=== PATIENT | male | born 1955 | race Caucasian/White ===

== ENCOUNTER 2016-11-09 13:33 | Emergency (ER) | payer OTHER ==
[~2016-11-09] VITALS: Ht 172.7 cm; Wt 117.0 kg
[2016-11-09] MEDS ORDERED: HYDR25TA PO (13:43)
[2016-11-09] MEDS ORDERED: PROZ10 PO (13:43)
[2016-11-09] MEDS ORDERED: LISI-660 PO (13:43)
[2016-11-09] MEDS ORDERED: ALBU8HFA4 IH (13:43)
[2016-11-09] MEDS ORDERED: IPRATROPIUM BROMIDE 0.5 MG/2.5 ML NEB SOLUTION NEB ONE (13:45)
[2016-11-09] MEDS ORDERED: ALBUTEROL SULFATE 5 MG/ML 20 ML NEB SOLN [BULK] NEB ONE (13:50)
[2016-11-09] MEDS ORDERED: MethylPREDNISolone SOD SUCC 125 MG/2 ML VIAL IVP ONE (14:00)
[2016-11-09 14:09] LABS: BASOPHILS % (AUTO) 0.9 % (0.0-2.0); EOSINOPHILS % (AUTO) 1.7 % (1.0-6.0); HEMATOCRIT 43.8 % (41-53); HEMOGLOBIN 14.4 g/dL (13.5-17.5); LYMPHOCYTES # (AUTO) 2.3 K/uL (1.0-4.8); LYMPHOCYTES % (AUTO) 21.2 % (22.0-44.0); MEAN CORPUSCULAR HEMOGLOBIN 28.2 pg (26.0-34.0); MEAN CORPUSCULAR VOLUME 85 fL (80-100); MONOCYTES % (AUTO) 9.6 % (2.0-9.0); NEUTROPHILS # (AUTO) 7.2 K/uL (1.8-7.7); NEUTROPHILS % (AUTO) 66.6 % (40.0-70.0); PLATELET COUNT (AUTO) 263 K/uL (150-450); RED BLOOD CELL COUNT(AUTO) 5.12 MIL/uL (4.50-5.90); RED CELL DISTRIBUTION WIDTH 13.7 % (11.5-14.5); WHITE BLOOD COUNT (AUTO) 10.9 K/uL (4.5-11.0)
[2016-11-09 14:19] LABS: ANION GAP 11 mmol/L (8-16); CALCIUM, TOTAL 8.4 mg/dL (8.8-10.5); CARBON DIOXIDE 26 mmol/L (22-29); CHLORIDE 106 mmol/L (98-107); CREATININE 0.87 mg/dL (0.60-1.30); GLOMERULAR FILTR. RATE CALC > 60 mL/min (>60); POTASSIUM 3.7 mmol/L (3.5-5.1); SODIUM SERUM 143 mmol/L (136-145); UREA NITROGEN, BLOOD 11 mg/dL (7-18)
[2016-11-09 14:30] LABS: B-TYPE NATRIURETIC PEPTIDE 59 pg/mL (0-100)
[2016-11-09 14:44] LABS: ALANINE AMINOTRANSFERASE 33 U/L (12-78); ALBUMIN 3.6 g/dL (3.4-5.0); ASPARTATE AMINOTRANSFERASE 27 U/L (15-37); BILIRUBIN,TOTAL 0.5 mg/dL (0.1-1.0); CREATINE KINASE MB 2.2 ng/mL (0-5); CREATINE KINASE, TOTAL 363 U/L (39-308); TOTAL PROTEIN, SERUM 7.3 g/dL (6.4-8.2)
[2016-11-09] MEDS ORDERED: LEVOFLOXACIN 500 MG/D5% WATER 100 ML IV ONE (16:00)
[2016-11-09] MEDS ORDERED: LEVALBUTEROL HCL 1.25 MG/0.5 ML NEB SOLUTION NEB ONE (16:00)
[2016-11-09] MEDS ORDERED: MAGNESIUM SULFATE 4 GM/WATER 100 ML IV ONE (16:00)
[2016-11-09 18:18] VITALS: BP 130/86
== END 2016-11-09 19:03 | disposition home or self-care (01) ==
LOC: EMS 13:36
DX: J45.901 Unspecified asthma with (acute) exacerbation (principal); I10 Essential (primary) hypertension; F17.210 Nicotine dependence, cigarettes, uncomplicated
CPT/HCPCS: 36415; 71010; 80053; 82550; 82553; 83880; 84484; 85025; 93005; 94644; 96365; 96366; 96368; 96375; 99285; J1956; J2930; J3475; J7611; Z7610; 94640

== ENCOUNTER 2016-12-27 21:17 | Emergency (ER) | payer OTHER ==
[~2016-12-27] VITALS: Ht 172.7 cm; Wt 118.0 kg
[~2016-12-27 21:17] MED LIST: ALBU8HFA4 IH; HYDR25TA PO; LISI-660 PO; PROZ10 PO
[2016-12-27 21:59] LABS: BASOPHILS % (AUTO) 1.5 % (0.0-2.0); EOSINOPHILS % (AUTO) 4.6 % (1.0-6.0); HEMATOCRIT 44.4 % (41-53); HEMOGLOBIN 14.4 g/dL (13.5-17.5); LYMPHOCYTES % (AUTO) 26.7 % (22.0-44.0); MEAN CORPUSCULAR HEMOGLOBIN 28.1 pg (26.0-34.0); MEAN CORPUSCULAR HGB CONC 32.4 G/dL (31.0-37.0); MEAN CORPUSCULAR VOLUME 87 fL (80-100); MONOCYTES # (AUTO) 1.1 K/uL (0.1-1.0); MONOCYTES % (AUTO) 10.1 % (2.0-9.0); NEUTROPHILS # (AUTO) 6.3 K/uL (1.8-7.7); NEUTROPHILS % (AUTO) 57.1 % (40.0-70.0); PLATELET COUNT (AUTO) 268 K/uL (150-450); RED BLOOD CELL COUNT(AUTO) 5.13 MIL/uL (4.50-5.90); RED CELL DISTRIBUTION WIDTH 14.7 % (11.5-14.5); WHITE BLOOD COUNT (AUTO) 11.1 K/uL (4.5-11.0)
[2016-12-27 22:09] LABS: ANION GAP 5 mmol/L (8-16); CALCIUM, TOTAL 8.5 mg/dL (8.8-10.5); CARBON DIOXIDE 30 mmol/L (22-29); CHLORIDE 102 mmol/L (98-107); CREATININE 1.06 mg/dL (0.60-1.30); GLOMERULAR FILTR. RATE CALC > 60 mL/min (>60); POTASSIUM 3.6 mmol/L (3.5-5.1); SODIUM SERUM 137 mmol/L (136-145); UREA NITROGEN, BLOOD 13 mg/dL (7-18)
[2016-12-27 22:15] LABS: ALANINE AMINOTRANSFERASE 26 U/L (12-78); ALBUMIN 3.7 g/dL (3.4-5.0); ASPARTATE AMINOTRANSFERASE 19 U/L (15-37); BILIRUBIN,TOTAL 0.4 mg/dL (0.1-1.0); TOTAL PROTEIN, SERUM 6.9 g/dL (6.4-8.2)
[2016-12-27 22:28] LABS: RBC MORPHOLOGY COMMENT NORMAL RBC MORPH
[2016-12-28] MEDS ORDERED: HALOPERIDOL LACTATE 5 MG/ML VIAL IM ONE (01:45)
[2016-12-28] MEDS ORDERED: LORazepam 2 MG/ML VIAL IM ONE (01:45)
[2016-12-28 02:35] VITALS: BP 132/74
== END 2016-12-28 02:35 | disposition home or self-care (01) ==
LOC: EMS 21:18
DX: F20.9 Schizophrenia, unspecified (principal); F32.9 Major depressive disorder, single episode, unspecified; I10 Essential (primary) hypertension; J45.909 Unspecified asthma, uncomplicated; F17.210 Nicotine dependence, cigarettes, uncomplicated
CPT/HCPCS: 36415; 80053; 80307; 85025; 96372; 99284; G0480; J1630; J2060

== ENCOUNTER 2018-02-06 09:01 | Emergency (ER) | payer OTHER ==
[~2018-02-06] VITALS: Ht 172.7 cm; Wt 109.1 kg
[2018-02-06] MEDS ORDERED: ONDANSETRON HCL 4 MG TABLET PO ONE (11:15)
[2018-02-06] MEDS ORDERED: KETOROLAC TROMETHAMINE 60 MG/2 ML VIAL IM ONE (11:15)
[2018-02-06] MEDS ORDERED: HYDROmorphone 2 MG/ML SYRINGE IM ONE (11:15)
[2018-02-06] MEDS ORDERED: LISINOPRIL 10 MG TABLET PO ONE ×2 (11:30→12:15)
[2018-02-06 12:00] VITALS: BP 164/101
== END 2018-02-06 12:37 | disposition home or self-care (01) ==
LOC: EMS 09:04
DX: K08.89 Other specified disorders of teeth and supporting structures (principal); G43.909 Migraine, unspecified, not intractable, without status migrainosus; I10 Essential (primary) hypertension; J45.909 Unspecified asthma, uncomplicated; F17.210 Nicotine dependence, cigarettes, uncomplicated
CPT/HCPCS: 96372; 99284; J1170; J1885; Q0162

== ENCOUNTER 2018-09-04 22:55 | Emergency (ER) | payer OTHER ==
[~2018-09-04] VITALS: Ht 170.2 cm; Wt 113.6 kg
[2018-09-04] MEDS ORDERED: 0.9% SODIUM CHLORIDE 5 ML NEB SOLUTION NEB ONE (23:10)
[2018-09-04] MEDS: ALBUTEROL SULFATE 5 MG/ML 20 ML NEB SOLN [BULK] NEB ONE (23:11)
[2018-09-04] MEDS: IPRATROPIUM BROMIDE 0.5 MG/2.5 ML NEB SOLUTION NEB ONE (23:11)
[2018-09-04] MEDS: MethylPREDNISolone SOD SUCC 125 MG/2 ML VIAL IVP ONE (23:50)
[2018-09-05 00:03] VITALS: BP 123/74
[2018-09-05] MEDS: IPRATROPIUM BROMIDE 0.5 MG/2.5 ML NEB SOLUTION NEB ONE (00:20)
[2018-09-05] MEDS: ALBUTEROL SULFATE 2.5 MG/0.5 ML NEB SOLUTION NEB ONE (00:20)
[2018-09-05 00:40] LABS: BASOPHILS % (AUTO) 0.7 % (0.0-2.0); EOSINOPHILS % (AUTO) 2.9 % (1.0-6.0); HEMATOCRIT 42.8 % (41-53); HEMOGLOBIN 14.5 g/dL (13.5-17.5); LYMPHOCYTES # (AUTO) 4.1 K/uL (1.0-4.8); LYMPHOCYTES % (AUTO) 32.1 % (22.0-44.0); MEAN CORPUSCULAR HEMOGLOBIN 29.6 pg (26.0-34.0); MEAN CORPUSCULAR VOLUME 87 fL (80-100); MONOCYTES % (AUTO) 8.3 % (2.0-9.0); NEUTROPHILS # (AUTO) 7.1 K/uL (1.8-7.7); PLATELET COUNT (AUTO) 280 K/uL (150-450); RED BLOOD CELL COUNT(AUTO) 4.92 MIL/uL (4.50-5.90); RED CELL DISTRIBUTION WIDTH 13.7 % (11.5-14.5)
[2018-09-05] MEDS: ACETAMINOPHEN 500 MG TABLET PO ONE (00:41)
[2018-09-05] MEDS: KETOROLAC TROMETHAMINE 30 MG/ML VIAL IVP ONE (00:41)
[2018-09-05 00:51] LABS: ANION GAP 12 mmol/L (8-16); CARBON DIOXIDE 27 mmol/L (22-29); CHLORIDE 103 mmol/L (98-107); CREATININE 0.87 mg/dL (0.60-1.30); GLOMERULAR FILTR. RATE CALC > 60 mL/min (>60); GLUCOSE,RANDOM 143 mg/dL (70-110); POTASSIUM 3.2 mmol/L (3.5-5.1); SODIUM SERUM 142 mmol/L (136-145); UREA NITROGEN, BLOOD 16 mg/dL (7-18)
[2018-09-05 00:57] LABS: ALANINE AMINOTRANSFERASE 30 U/L (12-78); ALBUMIN 3.7 g/dL (3.4-5.0); ALKALINE PHOSPHATASE 107 U/L (46-116); ASPARTATE AMINOTRANSFERASE 22 U/L (15-37); BILIRUBIN,TOTAL 0.3 mg/dL (0.1-1.0); TOTAL PROTEIN, SERUM 7.2 g/dL (6.4-8.2)
[2018-09-05 00:59] LABS: LACTIC ACID 1.7 mmol/L (0.4-2.0)
[2018-09-05 01:07] LABS: B-TYPE NATRIURETIC PEPTIDE 36 pg/mL (0-100)
== END 2018-09-05 02:09 | disposition home or self-care (01) ==
LOC: EMS 22:56
DX: J45.901 Unspecified asthma with (acute) exacerbation (principal); F32.9 Major depressive disorder, single episode, unspecified; I10 Essential (primary) hypertension; F17.210 Nicotine dependence, cigarettes, uncomplicated; Z79.899 Other long term (current) drug therapy
CPT/HCPCS: 36415; 71045; 80053; 83605; 83880; 84484; 85025; 93005; 94640; 94644; 96374; 96375; 99285; 99406; G0480; J1885; J2930

== ENCOUNTER 2022-01-02 21:42 | Emergency (ER) | payer MEDICAID, OTHER ==
[~2022-01-02] VITALS: Ht 170.2 cm; Wt 100.0 kg
[~2022-01-02 21:42] MED LIST changes: +FLUO10CA24 PO; +HYDR-4870 PO; -HYDR25TA PO; -LISI-660 PO; +LISI-892 PO; -PROZ10 PO
[2022-01-02 22:53] LABS: HEMATOCRIT 44.1 % (41-53); LYMPHOCYTES # (AUTO) 2.9 K/uL (1.0-4.8); LYMPHOCYTES % (AUTO) 28.9 % (22.0-44.0); MEAN CORPUSCULAR HEMOGLOBIN 28.7 pg (26.0-34.0); MEAN CORPUSCULAR HGB CONC 33.9 G/dL (31.0-37.0); MEAN CORPUSCULAR VOLUME 85 fL (80-100); MONOCYTES % (AUTO) 9.9 % (2.0-9.0); NEUTROPHILS # (AUTO) 5.7 K/uL (1.8-7.7); NEUTROPHILS % (AUTO) 56.2 % (40.0-70.0); PLATELET COUNT (AUTO) 271 K/uL (150-450); RED CELL DISTRIBUTION WIDTH 14.1 % (11.5-14.5)
[2022-01-02] MEDS ORDERED: MethylPREDNISolone SOD SUCC 125 MG/2 ML VIAL IM ONE (23:00)
[2022-01-02] MEDS ORDERED: ALBUTEROL SULFATE 5 MG/ML 20 ML NEB SOLN [BULK] NEB ONE (23:00)
[2022-01-02] MEDS ORDERED: IPRATROPIUM BROMIDE 0.5 MG/2.5 ML NEB SOLUTION NEB ONE (23:00)
[2022-01-02 23:02] LABS: ANION GAP 5 mmol/L (8-16); CALCIUM, TOTAL 8.6 mg/dL (8.8-10.5); CARBON DIOXIDE 31 mmol/L (22-29); CHLORIDE 103 mmol/L (98-107); CREATININE 1.04 mg/dL (0.60-1.30); GLOMERULAR FILTR. RATE CALC > 60 mL/min (>60); GLUCOSE,RANDOM 148 mg/dL (70-110); POTASSIUM 3.3 mmol/L (3.5-5.1); SODIUM SERUM 139 mmol/L (136-145); UREA NITROGEN, BLOOD 17 mg/dL (7-18)
[2022-01-02 23:08] LABS: ALANINE AMINOTRANSFERASE 34 U/L (12-78); ALBUMIN 3.6 g/dL (3.4-5.0); ALKALINE PHOSPHATASE 142 U/L (46-116); ASPARTATE AMINOTRANSFERASE 23 U/L (15-37); BILIRUBIN,TOTAL 0.2 mg/dL (0.1-1.0)
[2022-01-03] MEDS ORDERED: ALBUTEROL SULFATE 2.5 MG/0.5 ML NEB SOLUTION NEB ONE (01:30)
[2022-01-03] MEDS ORDERED: 0.9% SODIUM CHLORIDE 5 ML NEB SOLUTION NEB ONE (01:45)
[2022-01-03] MEDS ORDERED: AZIT250T9 PO (03:35)
[2022-01-03] MEDS ORDERED: PRED-554 PO (03:35)
[2022-01-03 03:55] VITALS: BP 150/90
== END 2022-01-03 04:38 | disposition home or self-care (01) ==
LOC: EMS 21:44
DX: J45.909 Unspecified asthma, uncomplicated (principal); F17.210 Nicotine dependence, cigarettes, uncomplicated; F32.A Depression, unspecified; I10 Essential (primary) hypertension
CPT/HCPCS: 36415; 71045; 80053; 85025; 94640; 96372; 99285; J2930; J7613